=== PATIENT | male | born 1975 | race Caucasian/White ===

== ENCOUNTER 2017-11-07 20:58 | Observation (INO) | payer OTHER ==
[2017-11-07 21:48] LABS: #Eosinphils 0.1 thou/uL (0.0-0.7); #Lymphocytes 3.1 thou/uL (1.20-3.40); #Monocytes 0.9 thou/uL (0.11-0.59); %Basophils 0.2 % (0.0-1.0); %Eosinophils 0.8 % (0.0-10.0); %Lymphocytes 28.1 % (21.0-51.0); %Monocytes 8.1 % (0.0-10.0); %Neutrophils 62.8 % (42.0-75.0); Mean Corpuscular HGB CONC 33.1 g/dL (32.0-36.0); Mean Corpuscular Hemoglobin 29.4 pg (27.0-31.0); Mean Corpuscular Volume 88.6 fl (80.0-94.0); Mean Platelet Volume 7.2 fL (7.4-10.4); Platelet Count 231 thou/uL (130-400); RBC Distribution Width 12.1 % (11.5-14.5); Red Blood Cell (RBC) Count 5.11 mill/uL (4.70-6.10); White Blood Cell (WBC) Count 11.2 thou/uL (4.8-10.8)
[2017-11-07] MEDS ORDERED: Ondansetron ODT 4 MG TAB PO PRN (22:03)
[2017-11-07] MEDS ORDERED: Ondansetron HCl/PF 4 MG/2 ML Vial IVP PRN (22:03)
[2017-11-07 22:12] LABS: ALT (SGPT) 15 U/L (8-55); AST (SGOT) 9 U/L (5-34); Albumin 3.9 g/dL (3.5-5.0); Alkaline Phosphatase 58 U/L (40-150); Anion Gap 15 mmol/L (10-20); BUN (Urea Nitrogen) 15 mg/dL (8.9-20.6); Bilirubin, Total 0.7 mg/dL (0.2-1.2); CK (CPK) 91 U/L (30-200); Calc. Creatinine Clearance 0 mL/min (70-130); Calcium 9.2 mg/dL (7.8-10.44); Carbon Dioxide 21 mmol/L (22-29); Chloride 106 mmol/L (98-107); Estimated GFR-MDRD Greater than 90; Globulin 2.1 g/dL (2.4-3.5); Glucose 146 mg/dL (70-105); Potassium 3.9 mmol/L (3.5-5.1); Sodium 138 mmol/L (136-145)
[2017-11-07 22:13] LABS: CKMB 1.1 ng/mL (0-6.6); Troponin I Less than 0.010 ng/mL (< 0.028)
[2017-11-07] MEDS ORDERED: Nitroglycerin 0.4 MG TAB (25 Tab Bottle) SL PRN (23:06)
[2017-11-07 23:27] LABS: Phosphorus 4.9 mg/dL (2.3-4.7)
[2017-11-07] MEDS: Acetaminophen 325 MG TAB PO SCH (23:28)
[2017-11-07 23:36] VITALS: BMI 36.9
[2017-11-08 01:09] LABS: Troponin I Less than 0.010 ng/mL (< 0.028)
--- NOTE | 2017-11-08 01:29 | HP-2 ---
DATE OF ADMISSION: 11/07/2017 CODE STATUS: FULL. PRIMARY CARE PHYSICIAN: Shannon stephens. ATTENDING: Jose L Antoine MD RESIDENT: Fabricio Aaron, PGY-1. CHIEF COMPLAINT: Chest pain. 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 Said the pain was kind of constant, kind of dull throughout the day, but was made worse when he was lifting heavy objects and he said when he went back to his hotel later this evening, he started getti ng a squeezing chest pain again started getting real short of breath. Pain is made worse with taking deep breaths. Does not recall any trauma or any muscle strain involving the muscle, pain does not r adiate anywhere. It is in the center of the chest. Denies any headaches, vision changes, dizziness. Denies any nausea, vomiting. Denies any other symptoms and a squeezing chest pain and shortness of breath. He went to the ER, was given aspirin and got a nitropatch, pain did get a little bit better with nitropatch. PAST MEDICAL HISTORY: Diabetes mellitus type 2. PAST SURGICAL HISTORY: None. ALLERGIES: No known drug allergies. MEDICATIONS: Metformin 1000 grams 2 times a day. FAMILY HISTORY: No significant family history. SOCIAL HISTORY: Smokes occasionally. Last time, he smoked was a couple of weeks ago with few cigare ttes. Alcohol use, 3 beers a week. Drugs: No illicit drug use. REVIEW OF SYSTEMS: All review of systems listed in the HPI, otherwise negative at this time. PHYSICAL EXAMINATION: VITAL SIGNS: Blood pressure 115/75, pulse is 89, respirations 16, temperature is 97.7, pulse ox is 9 7% on room air. Current weight is 59.65 kilograms. GENERAL: He is alert and oriented x3. Well-developed, well-nourished, obese, appropriately interact areli. EYES: Conjunctivae within normal limits. NECK: Supple. No adenopathy, no thyromegaly. CARDIOVASCULAR: Regular rate and rhythm. No murmurs, no gallops. Radial pulses, pedal pulses palpa carmina bilaterally. RESPIRATORY: Normal breathing effort. No retractions. LUNGS: Clear to auscultation bilaterally. SKIN: Warm and dry. ABDOMEN: Soft, nontender to palpation. Bowel sounds heard in all 4 quadrants. No masses or distent ion. EXTREMITIES: He has no right hand. MUSCULOSKELETAL: Structure within normal limit. Has full range of motion. NEUROLOGIC: No focal neuro deficits. PSYCHIATRIC: Appropriate. LABORATORY DATA: White blood cell count 11.8, hemoglobin 16, hematocrit 47.3, platelets 244. Sodium is 139, potassium is 4.2, chloride is 103, carbon dioxide is 25, BUN is 17, creatinine 1.10, glucose is 174, calcium is 9.3, total protein 6.8, albumin is 4.3, total bilirubin 0.5, AST 11, ALT 16, charley line phosphatase is 67. PT was 13.5, INR is 1.0, aPTT was 27.9. D-dimer was 0.27. BNP was 30.2, CK -MB was 1.2. Troponins were less than 0.010. Chest x-ray has no abnormality. His heart score is 2. ASSESSMENT AND PLAN: 1. Typical versus atypical chest pain. Patient has some symptoms that go along with typical chest p ain as pain being made worse with exertion, but also has symptoms of atypical chest pain and pain wor se with deep breaths. Pain being kind of constant throughout the day, so we will continue serial tro ponins follow along. We will put him on tele observation overnight. We will make him n.p.o. at [facility], depending on if we want to get a stress test in the morning. We will also check a TSH, magnesi um, phosphorus, fasting lipid panel, and hemoglobin A1c. We will also give him some Protonix for may be gastroesophageal reflux disease pain. We will also schedule Tylenol for possible costochondritis as well. 2. Diabetes mellitus type 2. We will continue his metformin. I have recommended dose and will chec k blood sugars a.c. and at bedtime, no need for insulin sliding scale at this time. 3. Leukocytosis. White blood cell count 11.8, has no signs of fever or chills. No sign of infectio n, but we will recheck CBC in the morning to trend white blood cell count.
[2017-11-08] MEDS: Acetaminophen 325 MG TAB PO SCH ×4 (04:36→20:17)
[2017-11-08 04:39] LABS: #Eosinphils 0.1 thou/uL (0.0-0.7); #Lymphocytes 2.8 thou/uL (1.20-3.40); #Monocytes 0.9 thou/uL (0.11-0.59); #Neutrophils 5.9 thou/uL (1.40-6.50); %Basophils 0.4 % (0.0-1.0); %Eosinophils 0.8 % (0.0-10.0); %Lymphocytes 28.7 % (21.0-51.0); %Monocytes 8.9 % (0.0-10.0); %Neutrophils 61.2 % (42.0-75.0); Hemoglobin 14.8 g/dL (14.0-18.0); Mean Corpuscular HGB CONC 34.2 g/dL (32.0-36.0); Mean Corpuscular Hemoglobin 30.5 pg (27.0-31.0); Mean Platelet Volume 7.6 fL (7.4-10.4); Platelet Count 210 thou/uL (130-400); RBC Distribution Width 12.2 % (11.5-14.5); Red Blood Cell (RBC) Count 4.87 mill/uL (4.70-6.10); White Blood Cell (WBC) Count 9.7 thou/uL (4.8-10.8)
[2017-11-08 04:46] LABS: Cardiac Risk 3.7 (Less than 4.5)
--- NOTE | 2017-11-08 06:46 | PDOC.FM ---
- Subjective Subjective: Pt states that he has had continued squeezing chest pain and SOB since admission. He states that this is a feeling strong enough that it wakes him from his sleep. He denies n/v, diaphoresis, radiation of pain, and all other symptoms in ROS. There were no acute events over night. - Objective MAR Reviewed: Yes Vital Signs & Weight: Vital Signs (12 hours) Temp Pulse Resp BP Pulse Ox 11/08/17 04:15 97.7 F 93 16 108/68 95 11/07/17 23:10 97.8 F 79 16 Weight Weight 134.127 kg I&O: 11/06/17 11/07/17 11/08/17 06:59 06:59 06:59 Intake Total 480 Balance 480 Result Diagrams: 11/08/17 04:14 11/07/17 21:38 EKG Reviewed by me: Yes (NSR w/sinus arrhythmia) <Raman Pop - Last Filed: 11/08/17 06:44> - Objective Vital Signs & Weight: Vital Signs (12 hours) Temp Pulse Resp BP Pulse Ox 11/08/17 11:19 97.8 F 80 18 114/74 95 11/08/17 08:00 97.4 F L 67 16 11/08/17 07:42 97.4 F L 67 16 124/79 93 L 11/08/17 04:15 97.7 F 93 16 108/68 95 Weight Weight 134.127 kg I&O: 11/07/17 11/08/17 11/09/17 06:59 06:59 06:59 Intake Total 480 Balance 480 Result Diagrams: 11/08/17 04:14 11/07/17 21:38 <Jose L Antoine - Last Filed: 11/08/17 15:37> Phys Exam - Physical Examination Constitutional: NAD HEENT: PERRLA, moist MMs Neck: full ROM Respiratory: clear to auscultation bilateral Cardiovascular: RRR, no significant murmur Gastrointestinal: soft, non-tender, no distention, positive bowel sounds Musculoskeletal: no edema Chest not TTP Neurological: non-focal, normal sensation Psychiatric: normal affect, A&O x 3 Skin: no rash <Raman Pop - Last Filed: 11/08/17 06:44> Dx/Plan (1) Angina at rest Code(s): I20.8 - OTHER FORMS OF ANGINA PECTORIS Status: Acute (2) DM2 (diabetes mellitus, type 2) Status: Chronic QualifierTitle: Diabetes mellitus complication status: without complication Diabetes mellitus director long term care insulin use: without nursing home use Qualified Code(s): E11.9 - Type 2 diabetes mellitus without complications (3) Obesity (BMI 30-39.9) Code(s): E66.9 - OBESITY, UNSPECIFIED Status: Chronic - Plan Plan: 1. typical chest pain - not associated with activity - pt has had no ekg changes, cardiac enzymes are normal x3 - lipids are WNL - given continuance of symptoms at rest, stress test today 2. DM2 - continue home metformin - A1c 7 - BG ACHS - low carb diet 3. Obesity - [employer] travel counselor on weight loss and diet Dispo: Stable. Concern for cardiac source of CP. Stress today <Raman Pop - Last Filed: 11/08/17 06:44> Attending Addendum - Attending Addendum I personally evaluated the patient and discussed the management with Dr. Pop. I agree with and repeated the History, Examination, Assessment and Plan documented above with any addition or exceptions noted below. Does not sound like typical chest pain to me, aching, worse with exertion, but with no n/v/diaphoresis and in the center of his chest. Stress pending. <Jose L Antoine - Last Filed: 11/08/17 15:37>
[2017-11-08] MEDS: metFORMIN 500 MG TAB PO SCH ×2 (08:58→18:11)
[2017-11-08] MEDS: Aspirin 81 mg Enteric Coated Tablet PO SCH (08:58)
--- NOTE | 2017-11-08 15:16 | RAD ---
CHEST PA AND LATERAL: Date: 11/08/17 HISTORY: 42-year-old male with history of chest pain. FINDINGS: Inspiration is somewhat less than optimal with some linear and interstitial increased markings, parti cularly in the bases, having more of a chronic appearance and probably related to the poor inspiratio n. No confluent pneumonia, overt edema, or pleural effusion. IMPRESSION: Stable increased linear and interstitial markings in the bases with poor inspiration, without evidenc e for confluent pneumonia or overt edema. POS: [facility]
--- NOTE | 2017-11-08 16:30 | HP ---
DATE OF ADMISSION: 11/07/2017 CHIEF COMPLAINT: Chest pain. HISTORY OF PRESENT ILLNESS: This is 42-year-old male with history of obesity and diabetes mellitus w ho presented with a 1-day history of chest pain which is midsternal, does not radiate, worse with mart p respirations and with exertion or lifting heavy weights with no associated diaphoresis, nausea, vom iting or radiation of the pain. This persisted all day yesterday including when he woke up, today it woke him from sleep. He decided to come to the ED. In the ED, he was frequently admitted for chest pain rule out. Currently, he says he is chest pain free. He is eating lunch and all other systems reviewed are negative. PAST MEDICAL HISTORY: Significant for diabetes and obesity. PAST SURGICAL HISTORY: Negative. ALLERGIES: No known drug allergies. MEDICATIONS: Metformin 1 gram b.i.d. FAMILY HISTORY: Negative for early cardiac history. SOCIAL HISTORY: Smokes occasionally, about 3 beers a week. No drug use. PHYSICAL EXAMINATION: VITAL SIGNS: Most recent vitals include temperature 97.8, pulse rate 80, respirations 18, O2 sat 95, and blood pressure 114/74. GENERAL: No acute distress, eating lunch in bed. HEENT: Eyes without icterus or injection. Mucous membranes. Nares patent. Pinna normal. CARDIOVASCULAR: Regular rate and rhythm without murmur, gallops or rubs. No peripheral edema or JVD . LUNGS: Clear to auscultation bilaterally without wheezes, rales or rhonchi. He is nontender to palp ation on his chest. GASTROINTESTINAL: Bowel sounds positive. Nontender to palpation. No palpable organomegaly. GENITOURINARY: Deferred. EXTREMITIES: Without obvious deformity, contracture or joint swelling. NEUROLOGIC: Cranial nerves II-XII intact and symmetric motor 5/5 in upper and lower extremities. Se nsation intact to light touch throughout. PSYCHIATRIC: Alert and oriented x4. Mood and affect are appropriate for current medical condition. LABORATORY DATA: Include white count 9.7, hemoglobin that is normal, platelets are normal. Most rec ent BMP demonstrates sodium of 138, potassium 3.9, chloride 106, bicarb 21, BUN 15, creatinine 0.78, glucose 146. His A1c is 7. His troponins are negative x2. His lipid panel includes total cholester ol 108, triglycerides 128, LDL 53, HDL 29 and TSH 1.18, phosphorus 4.9, magnesium 2. EKG reveals nor mal sinus rhythm without murmur, gallops or rub. No chest x-ray was performed. It looks like I will go ahead and order one. ASSESSMENT AND PLAN: 1. A 42-year-old gentleman with chest pain, heart score of about 2. We will go and proceed with str ess testing. We can give him aspirin. He will likely need a statin when he goes home. 2. Diabetes mellitus. Discontinue metformin and sugar checks while he is here with sliding scale to cover. 3. Deep venous thrombosis prophylaxis with sequential compression devices and gastrointestinal proph ylaxis with diet.
[2017-11-09] MEDS: Acetaminophen 325 MG TAB PO SCH ×2 (04:22→11:40)
--- NOTE | 2017-11-09 05:16 | PDOC.FM ---
- Subjective Subjective: Pt is a pleasant man from [place] that is here on work. He states he experienced squeezing chest pain at work and now that has resolved. Since he has been in the hospital he has had no further chest pain, sob. He denies n/v/d , fever, chills, or cough. He states he has a PCP in [place] and will schedule a visit in the next month when he returns home. He has no other complaints this morning. - Objective Vital Signs & Weight: Vital Signs (12 hours) Temp Pulse Resp BP BP Pulse Ox 11/09/17 04:19 77 16 121/70 95 11/08/17 19:44 98.6 F 97 18 131/81 93 L 11/08/17 19:11 98.2 F 77 16 Weight Weight 133.538 kg I&O: 11/07/17 11/08/17 11/09/17 06:59 06:59 06:59 Intake Total 480 960 Balance 480 960 Result Diagrams: 11/08/17 04:14 11/07/17 21:38 <Ha Chambers - Last Filed: 11/09/17 06:41> - Objective Vital Signs & Weight: Vital Signs (12 hours) Temp Pulse Resp BP BP Pulse Ox 11/09/17 07:50 98.3 F 77 16 11/09/17 07:45 97.9 F 84 16 121/82 96 11/09/17 04:19 77 16 121/70 95 Weight Weight 133.538 kg I&O: 11/08/17 11/09/17 11/10/17 06:59 06:59 06:59 Intake Total 480 960 Balance 480 960 Result Diagrams: 11/08/17 04:14 11/07/17 21:38 <Gabriella Umana - Last Filed: 11/09/17 16:18> Phys Exam - Physical Examination HEENT: PERRLA, moist MMs Neck: no nodes, supple Respiratory: no wheezing, clear to auscultation bilateral Cardiovascular: RRR, no significant murmur Gastrointestinal: soft, non-tender, no distention, positive bowel sounds Musculoskeletal: no edema, pulses present R hand absent from defect Neurological: non-focal, moves all 4 limbs Lymphatic: no nodes Psychiatric: normal affect, A&O x 3 Skin: no rash <Ha Chambers - Last Filed: 11/09/17 06:41> Dx/Plan (1) Angina at rest Code(s): I20.8 - OTHER FORMS OF ANGINA PECTORIS Status: Acute (2) DM2 (diabetes mellitus, type 2) Status: Chronic QualifierTitle: Diabetes mellitus complication status: without complication Diabetes mellitus intermediate manager insulin use: without skilled nursing use Qualified Code(s): E11.9 - Type 2 diabetes mellitus without complications (3) Obesity (BMI 30-39.9) Code(s): E66.9 - OBESITY, UNSPECIFIED Status: Chronic - Plan Plan: 1. typical chest pain - not associated with activity - pt has had no ekg changes, cardiac enzymes are normal x3 - lipids are WNL - No longer experiencing symptoms, will finish stress test today 2. DM2 - continue home metformin - A1c 7 - BG ACHS - low carb diet 3. Obesity - legal counsel on weight loss and diet Dispo: Stable. Patient likely discharge home today pending stress <Ha Chambers - Last Filed: 11/09/17 06:41> Attending Addendum - Attending Addendum I discussed the management with Dr. Chambers- patient discharged prior to my seeing the patient I agree with the History, Examination, Assessment and Plan documented above with any addition or exceptions noted below- Admitted for chest pain; troponin negative x 3; stress completed today and negative for ischemia and normal EF. <Gabriella Umana - Last Filed: 11/09/17 16:18>
[2017-11-09 07:57] VITALS: TEMP 98.3
[2017-11-09 08:27] VITALS: BP 121/82
[2017-11-09] MEDS: Aspirin 81 mg Enteric Coated Tablet PO SCH (09:30)
[2017-11-09] MEDS: metFORMIN 500 MG TAB PO SCH (09:30)
--- NOTE | 2017-11-09 10:07 | NM ---
RADIONUCLIDE STRESS REST MYOCARDIAL PERFUSION SCAN WITH CT ATTENUATION CORRECTION AND SPECT IMAGING LEFT VENTRICULAR WALL MOTION EVALUATION AND EJECTION FRACTION: HISTORY: Chest pain. FINDINGS: There is heterogeneous uptake of radiotracer throughout the left ventricular myocardium on both the s tress and rest images. No focal perfusion defect or reversibility are apparent. Anup protocol was used for a total test time of 8 minutes 0 seconds. QGS analysis of gated SPECT im ages shows no focal wall motion abnormalities. TID=1.1. LHR=39%. Left ventricular ejection fraction is calculated at 58%. IMPRESSION: 1. Normal myocardial perfusion scan. 2. Normal left ventricular ejection fraction. POS: [facility]
--- NOTE | 2017-11-09 14:45 | DIS-2 ---
DATE OF ADMISSION: 11/07/2017 DATE OF DISCHARGE: 11/09/2017 RESIDENT: Ha Chambers M.D. ADMITTING ATTENDING: Jose L Antoine M.D. DISCHARGE ATTENDING: Gabriella Umana M.D. CONSULTATIONS: None. PROCEDURES: The patient underwent a chest x-ray on 11/08/2017 that showed a stable increased linear and interstitial markings in the bases with poor inspiration without evidence of confluent pneumonia or overt edema. The patient also underwent a stress test nuclear medicine test on 11/08/2017 and 11/09/2017 that showed a normal myocardial perfusion scan, normal left ventricular ejection fraction with estimated ejection fraction of 58%. PRIMARY DIAGNOSIS: 1. Atypical chest pain. 2. Diabetes mellitus type 2. 3. Obesity. DISCHARGE MEDICATIONS: The patient will be sent home on metformin 1000 mg b.i.d. and aspirin 81 mg. DISCONTINUED MEDICATIONS: None. HISTORY OF PRESENT ILLNESS AND HOSPITAL COURSE: This is a 42-year-old male who came in with chest pain starting this morning. He said he woke up with a squeezing type chest pain and having trouble breathing that lasted for about half hour and then he went to work. 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 He said the pain was kind of constant, kind of dull throughout the day, but was made worse when he was lifting heavy objects. 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 Pain is made worse with taking deep breaths. He does not recall any trauma or muscle strain involving the muscle. Pain does not radiate anywhere. It is in the center of his chest. He denies any headaches, vision changes, or dizziness. He also denies any nausea or vomiting. He denies any other symptoms other than squeezing chest pain and shortness of breath. He went to the ER and was given aspirin and got a nitropatch, pain did get a little better with nitropatch. During this hospitalization, he had some notable lab values. White blood cell count of 11.2 that trended down to 9.7. Also had a hemoglobin A1c of 7.0, a triglyceride of 128, cholesterol level of 108 and troponin I less than 0.01 x3. The patient was also afebrile during this entire hospitalization and all other vital signs were within normal limits. The patient made steady progress throughout hospitalization and no longer continue to complained of any further chest pain. The patient underwent a stress test on 11/08/2017 and it was found that needed to be a 2-day stress to complete the study fully until he finished the test on 11/09/2017, but that showing a normal left ventricular cardiac function. The patient otherwise was asymptomatic and had no further complications during his hospitalization and will be discharged in appropriate condition. DISPOSITION: Stable. DISCHARGE INSTRUCTIONS: 1. Location will be discharged home under the care of himself. 2. Diet will be a heart healthy and consistent carbohydrate diet for his diabetes. 3. Activity will be as tolerated with no restrictions. 4. Followup will be with his PCP, Dr. Brady up in [place] in the next 2-3 weeks when he returns home after this working stent in [place]. We wish him the best of luck. GERMÁN
== END 2017-11-09 12:45 | disposition home or self-care (01) ==
LOC: ERS 20:58 → 2SW 23:04
PROVIDERS: ADMIT Emergency Medicine; ATTEND Emergency Medicine
DX: R07.89 Other chest pain (principal); E11.9 Type 2 diabetes mellitus without complications; F17.200 Nicotine dependence, unspecified, uncomplicated; E66.9 Obesity, unspecified; Z68.36 Body mass index [BMI] 36.0-36.9, adult
CPT/HCPCS: 36415; 36416; 71046; 78452; 80061; 82553; 83036; 83735; 84100; 84443; 84484; 85025; 93005; 93017; A9500; G0378